=== PATIENT | female | born 2000 | race African-American/Black ===

== ENCOUNTER 2022-11-09 19:19 | Emergency (ER) | payer BC, OTHER ==
[~2022-11-09] VITALS: Ht 167 cm; Wt 60.7 kg
--- NOTE | 2022-11-09 19:53 | ED Respiratory ---
General Chief Complaint: Respiratory Problems Stated Complaint: shortness of breath Nursing Triage Note: PATIENT STATES SHORTNESS OF BREATH, DENIES COUGH. Source: patient History of Present Illness Date Seen by Provider: Nov 09, 2022 Time Seen by Provider: 19:40 Initial Comments PT ARRIVES VIA POV FROM HOME C/O SHORTNESS OF BREATH SINCE YESTERDAY NO COUGH OR NASAL CONGESTION/DRAINAG NO FEVER NO CHEST PAIN NO SWELLING IN LEGS/FEET OR PAIN IN CALVES NO RECENT TRAVEL NO HISTORY OF SIMILAR PT IS [employer] STUD[employer], ROOM MATE IS NOT ILL. NO KNOWN SICK CONTACTS PT IS NOT IN ANY SPORTS PT HAS HAD COVID VACCINE X 2 LMP--BEGAN 4 DAYS AGO, NORMAL. NO CONTROL [employer] Allergies and Home Medications Allergies Coded Allergies: No Known Drug Allergies (Unverified , 11/09/22) Review of Systems Review of Systems Constitutional: no symptoms reported EENTM: no symptoms reported Respiratory: see HPI; No cough; short of breath Cardiovascular: no symptoms reported Gastrointestinal: no symptoms reported Genitourinary: no symptoms reported LMP: Nov 05, 2022 Musculoskeletal: no symptoms reported Skin: no symptoms reported Psychiatric/Neurological: No Symptoms Reported Hematologic/Lymphatic: No Symptoms Reported Immunological/Allergic: no symptoms reported Past Ceazbgo-Kfkrqu-Cndgmn Hx Patient Social History Tobacco Use?: No Use of E-Cig and/or Vaping dev: No Substance use?: Yes Substance type: Marijuana Additional substance use comme: CLAIMS NONE X 4 MONTHS ON 11/09/22 Alcohol Use?: No Seasonal Allergies Seasonal Allergies: No Past Medical History Surgeries: No Respiratory: No Cardiac: No Neurological: No : No Last Menstrual Period: Nov 05, 2022 Reproductive Disorders: No Genitourinary: No Gastrointestinal: No Musculoskeletal: No Endocrine: No HEENT: No Cancer: No Psychosocial: No Integumentary: No Blood Disorders: No Physical Exam Vital Signs - First Documented 11/09/22 19:36 Temp 37.2 Pulse 88 Resp 20 Pulse Ox 95 O2 Delivery Room Air Capillary Refill : Less Than 3 Seconds Height: '" Weight: lbs. oz. kg; 21.00 BMI Method: General Appearance: WD/WN, no apparent distress, other (DOES NOT APPEAR ILL OR TO BE IN ANY DISCOMFORT OR DISTRESS) HEENT: PERRL/EOMI, normal ENT inspection, TMs normal, pharynx normal Neck: normal inspection Respiratory: normal breath sounds, no respiratory distress, no accessory muscle use Cardiovascular: normal peripheral pulses, regular rate, rhythm, no edema, no JVD, no murmur Gastrointestinal: non tender, soft Extremities: normal inspection, normal capillary refill Neurologic/Psychiatric: manager pediatric II-XII nml as tested, no motor/sensory deficits, alert, normal mood/affect, oriented x 3 Skin: normal color (PT IS BLACK), warm/dry Progress/Results/Core Measures Suspected Sepsis SIRS Temperature: Pulse: 88 Respiratory Rate: 20 Blood Pressure / Mean: Results/Orders Lab Results Laboratory Tests Test 11/09/22 19:45 Range/Units Influenza Type A (RT-PCR) Not Detected Not Detecte Influenza Type B (RT-PCR) Not Detected Not Detecte SARS-CoV-2 RNA (RT-PCR) Not Detected Not Detecte My Orders Orders - NUNO NICE DO Covid 19 Inhouse Test (11/09/22 19:42) Influenza A And B By Pcr (11/09/22 19:42) Isolation Central Supply Req (11/09/22 19:42) Chest 1 View, Ap/Pa Only (11/09/22 19:47) Vital Signs/I&O 11/09/22 19:36 Temp 37.2 Pulse 88 Resp 20 B/P (MAP) Pulse Ox 95 O2 Delivery Room Air Capillary Refill : Less Than 3 Seconds Progress Note : Progress Note PPE WORN COVID AND FLU TESTING DONE VITALS NORMAL, O2 SAT 100% AND PT IS NOT DYSPNEIC, WITH CLEAR LUNG SOUNDS MARKED DELAY ON OBTAINING CXR, AND THEN MARKED DELAY IN OBTAINING RADIOLOGIST REPORT DISCUSSED TEST RESULTS, ANTICIPATED COURSE, SYMPTOMATIC TREATMENT, NEED FOR FOLLOW UP AND RETURN PRECAUTIONS. Diagnostic Imaging Comments CXR--PER RADIOLOGIST REPORT AT 213 Findings: No focal airspace disease in the visualized lungs. No pleural effusion or pneumothorax. Normal cardiomediastinal silhouette. Impression: 1. No acute cardiopulmonary process by portable radiography. Reviewed: Reviewed by Me Departure Impression Primary Impression: SUBJECTIVE DYSPNEA Disposition: HOME, SELF-CARE Condition: Stable Departure-Patient Inst. Decision time for Depature: 21:33 Referrals: NO,LOCAL PHYSICIAN (PCP) Primary Care Physician KOBY PAYAN MD Patient Instructions: Shortness of Breath, Adult ED Add. Discharge Instructions: HOME, REST FOLLOW UP WITH [facility] [facility] ON FRIDAY FOR RECHECK All discharge instructions reviewed with patient and/or family. Voiced understanding. NUNO NICE DO Nov 09, 2022 19:53
--- NOTE | 2022-11-09 21:32 | Diagnostic Imaging Report ---
CHEST 1 VIEW, AP/PA ONLY Indication: Dyspnea Comparison: None available. Findings: No focal airspace disease in the visualized lungs. No pleural effusion or pneumothorax. Normal cardiomediastinal silhouette. Impression: 1. No acute cardiopulmonary process by portable radiography. Dictated by: Dictated on workstation # [id number]
[2022-11-09 21:44] VITALS: BP 98/62
== END 2022-11-09 21:44 | disposition home or self-care (01) ==
LOC: ER 19:32
DX: R06.02 Shortness of breath (principal); Z20.822 Contact with and (suspected) exposure to COVID-19
CPT/HCPCS: 71045; 87636

== ENCOUNTER 2022-11-21 16:45 | Emergency (ER) | payer BC ==
[~2022-11-21] VITALS: Ht 171 cm; Wt 61.0 kg
--- NOTE | 2022-11-21 17:47 | ED General ---
General Chief Complaint: Respiratory Problems Stated Complaint: RESPITORY Nursing Triage Note: PT STATES LOW ENERGY AND ABOUT PASSED OUT TODAY, WAS SEEN HERE ABOUT 2 WKS AGO FOR HARD TO BREATH Source of Information: Patient Exam Limitations: No Limitations (SAUL PINEDA MD) History of Present Illness Date Seen by Provider: Nov 21, 2022 Time Seen by Provider: 17:33 Initial Comments Patient is a 21-year-old female who presents to the emergency room with a chief complaint of feeling "fatigued", no energy, intermittently shortness of breath. She was at work today and felt like her blood sugar might have dropped because she felt like she was going to pass out. Patient denies any recent fevers, chills, runny nose, cough or congestion. No headache. No nausea, vomiting or diarrhea. No urinary complaints. Last menstrual cycle was a week ago. She states she is not sexually active. Is not on control came off of it in March 2022. Takes no daily medication. No prior surgeries. Currently feels asymptomatic. Timing/Duration: 4-6 Hours Severity: Mild Associated Systoms: Shortness of Air, Weakness (SAUL PINEDA MD) Allergies and Home Medications Allergies Coded Allergies: No Known Drug Allergies (Unverified , 11/09/22) Patient Home Medication List Home Medication List Reviewed: Yes (SAUL PINEDA MD) Review of Systems Review of Systems Constitutional: see HPI EENTM: no symptoms reported Respiratory: short of breath (Intermittent) Cardiovascular: no symptoms reported Gastrointestinal: no symptoms reported Genitourinary: no symptoms reported Musculoskeletal: no symptoms reported Skin: no symptoms reported Psychiatric/Neurological: No Symptoms Reported (SAUL PINEDA MD) Past Zqlpnou-Acopvf-Wuldxf Hx Patient Social History Tobacco Use?: No Substance use?: No (SAUL PINEDA MD) Immunizations Up To Date Second COVID19 Vaccination Alan: YES (SAUL PINEDA MD) Seasonal Allergies Seasonal Allergies: No (SAUL PINEDA MD) Past Medical History Surgery/Hospitalization HX: DENIES MED HX Surgeries: No Respiratory: No Cardiac: No Neurological: No Last Menstrual Period: Nov 07, 2022 Reproductive Disorders: No Genitourinary: No Gastrointestinal: No Musculoskeletal: No Endocrine: No HEENT: No Cancer: No Psychosocial: No Integumentary: No Blood Disorders: No (SAUL PINEDA MD) Physical Exam Vital Signs Vital Signs - First Documented 11/21/22 16:48 Temp 36.6 Pulse 101 Resp 18 B/P (MAP) 108/49 (68) Pulse Ox 99 O2 Delivery Room Air (FRANCISCA NINA) Vital Signs Capillary Refill : Less Than 3 Seconds (SAUL PINEDA MD) Height, Weight, BMI Height: '" Weight: lbs. oz. kg; 20.00 BMI Method: General Appearance: No Apparent Distress, WD/WN, Thin Eyes: Bilateral Eye Normal Inspection, Bilateral Eye PERRL, Bilateral Eye EOMI HEENT: PERRL/EOMI, TMs Normal, Normal ENT Inspection, Pharynx Normal, Moist Mucous Membranes Neck: Normal Inspection, Supple Respiratory: Lungs Clear, Normal Breath Sounds, No Accessory Muscle Use, No Respiratory Distress Cardiovascular: Regular Rate, Rhythm, Normal Peripheral Pulses Gastrointestinal: Non Tender, Soft Extremity: Normal Capillary Refill, Normal Inspection, Normal Range of Motion, Non Tender, No Calf Tenderness Neurologic/Psychiatric: Alert, Oriented x3, No Motor/Sensory Deficits, Normal Mood/Affect, marketing services rep II-XII Norm as Tested Skin: Normal Color, Warm/Dry (SAUL PINEDA MD) Progress/Results/Core Measures Suspected Sepsis SIRS Temperature: Pulse: 101 Respiratory Rate: 18 Blood Pressure 108 /49 Mean: 68 (SAUL PINEDA MD) Results/Orders Lab Results Laboratory Tests Test 11/21/22 17:53 11/21/22 18:04 11/21/22 18:19 Range/Units Glucometer 64 L 70-110 MG/DL White Blood Count 7.5 4.3-11.0 10^3/uL Red Blood Count 4.29 3.80-5.11 10^6/uL Hemoglobin 11.5 11.5-16.0 g/dL Hematocrit 36 35-52 % Mean Corpuscular Volume 85 80-99 fL Mean Corpuscular Hemoglobin 27 25-34 pg Mean Corpuscular Hemoglobin Concent 32 32-36 g/dL Red Cell Distribution Width 14.1 10.0-14.5 % Platelet Count 238 130-400 10^3/uL Mean Platelet Volume 12.6 H 9.0-12.2 fL Immature Granulocyte % (Auto) 0 % Neutrophils (%) (Auto) 58 42-75 % Lymphocytes (%) (Auto) 33 12-44 % Monocytes (%) (Auto) 8 0-12 % Eosinophils (%) (Auto) 1 0-10 % Basophils (%) (Auto) 0 0-10 % Neutrophils # (Auto) 4.4 1.8-7.8 10^3/uL Lymphocytes # (Auto) 2.5 1.0-4.0 10^3/uL Monocytes # (Auto) 0.6 0.0-1.0 10^3/uL Eosinophils # (Auto) 0.1 0.0-0.3 10^3/uL Basophils # (Auto) 0.0 0.0-0.1 10^3/uL Immature Granulocyte # (Auto) 0.0 0.0-0.1 10^3/uL Sodium Level 139 135-145 MMOL/L Potassium Level 4.3 3.6-5.0 MMOL/L Chloride Level 107 98-107 MMOL/L Carbon Dioxide Level 22 21-32 MMOL/L Anion Gap 10 5-14 MMOL/L Blood Urea Nitrogen 14 7-18 MG/DL Creatinine 0.85 0.60-1.30 MG/DL Estimat Glomerular Filtration Rate 101 BUN/Creatinine Ratio 16 Glucose Level 66 L 70-105 MG/DL Calcium Level 9.3 8.5-10.1 MG/DL Corrected Calcium 9.1 8.5-10.1 MG/DL Total Bilirubin 0.2 0.1-1.0 MG/DL Aspartate Amino Transf (AST/SGOT) 18 5-34 U/L Alanine Aminotransferase (ALT/SGPT) 12 0-55 U/L Alkaline Phosphatase 54 40-136 U/L Total Protein 7.4 6.4-8.2 GM/DL Albumin 4.2 3.2-4.5 GM/DL Monoscreen NEGATIVE NEGATIVE Urine Color YELLOW Urine Clarity CLEAR Urine pH 7.0 5-9 Urine Specific Tracy 1.010 L 1.016-1.022 Urine Protein NEGATIVE NEGATIVE Urine Glucose (UA) NEGATIVE NEGATIVE Urine Ketones NEGATIVE NEGATIVE Urine Nitrite NEGATIVE NEGATIVE Urine Bilirubin NEGATIVE NEGATIVE Urine Urobilinogen 0.2 < = 1.0 MG/DL Urine Leukocyte Esterase 1+ H NEGATIVE Urine RBC (Auto) NEGATIVE NEGATIVE Urine RBC NONE /HPF Urine WBC 0-2 /HPF Urine Squamous Epithelial Cells RARE /HPF Urine Crystals NONE /LPF Urine Bacteria TRACE /HPF Urine Casts NONE /LPF Urine Mucus NEGATIVE /LPF Urine Culture Indicated NO Urine Test NEGATIVE NEGATIVE (FRANCISCA NINA) My Orders Orders - FRANCISCA NINA Cbc With Automated Diff (11/21/22 17:57) Comprehensive Metabolic Panel (11/21/22 17:57) Chest 1 View, Ap/Pa Only (11/21/22 17:57) Ekg Tracing (11/21/22 17:57) Monotest (11/21/22 17:57) Ua Culture If Indicated (11/21/22 17:57) Hcg,Qualitative Urine (11/21/22 17:57) (FRANCISCA NINA) Vital Signs/I&O 11/21/22 16:48 Temp 36.6 Pulse 101 Resp 18 B/P (MAP) 108/49 (68) Pulse Ox 99 O2 Delivery Room Air (FRANCISCA NINA) Vital Signs/I&O Capillary Refill : Less Than 3 Seconds (SAUL PINEDA MD) Blood Pressure Mean: 68 Departure Communication (PCP) Took over care for Dr. Pineda at 6 PM. Patient discussed with me that she was having heart palpitation, chest pain and shortness of breath over the past 2 weeks. She states that shortness of breath was worse 2 weeks ago and improving some. She was concern for the heart palpitations today with a near syncopal event. She states she felt fatigued and weak during that time. Due to current complaint EKG, CBC, CMP and urinalysis was ordered. Did perform an Accu-Chek. She is not diabetic. Accu-Chek blood sugar 67. Provided a snack here at bedside. CBC CMP grossly unremarkable. Normal hemoglobin, electrolytes, kidney function. Urinalysis without strong evidence of infection. EKG showed normal sinus rhythm without evidence of arrhythmia, WPW, Brugada syndrome, arrhythmia. Chest x-ray negative for pneumonia, pneumothorax. She is not tachycardic or hypoxic suggesting PE. No leg pain. Perc score is 0. Low Wells score. No family history of sudden cardiac . Thurston negative. No recent URI symptoms. Patient exam otherwise benign. Discussed all results. Discussed multivitamins. Discussed healthy diet. Recommend follow-up with PCP in 2 to 3 days for reevaluation. (FRANCISCA NINA) Impression Primary Impression: Dyspnea Qualified Codes: R06.00 - Dyspnea, unspecified Additional Impressions: Fatigue Qualified Codes: R53.83 - Other fatigue Hypoglycemia Disposition: 01 HOME, SELF-CARE Condition: Stable Departure-Patient Inst. Decision time for Depature: 17:48 (SAUL PINEDA MD) Referrals: NO,LOCAL PHYSICIAN (PCP) Primary Care Physician Patient Instructions: Fatigue ED Add. Discharge Instructions: Start taking an pezb-zsj-daiwqpy multivitamin daily. Drink plenty of fluids to stay well-hydrated. Make sure you are eating well throughout the day and getting adequate rest at night. If you have any new, concerning or emergent complaints please return to the emergency room for reevaluation. SAUL PINEDA MD Nov 21, 2022 17:47 FRANCISCA NINA Nov 21, 2022 18:54
[2022-11-21 18:14] LABS: BASOPHILS % (AUTO) 0 % (0-10); EOSINOPHILS # (AUTO) 0.1 10^3/uL (0.0-0.3); EOSINOPHILS % (AUTO) 1 % (0-10); HEMATOCRIT 36 % (35-52); HEMOGLOBIN 11.5 g/dL (11.5-16.0); LYMPHOCYTES # (AUTO) 2.5 10^3/uL (1.0-4.0); LYMPHOCYTES % (AUTO) 33 % (12-44); MEAN CORPUSCULAR HEMOGLOBIN 27 pg (25-34); MEAN CORPUSCULAR HGB CONC 32 g/dL (32-36); MEAN CORPUSCULAR VOLUME 85 fL (80-99); MEAN PLATELET VOLUME 12.6 fL (9.0-12.2); MONOCYTES # (AUTO) 0.6 10^3/uL (0.0-1.0); MONOCYTES % (AUTO) 8 % (0-12); NEUTROPHILS # (AUTO) 4.4 10^3/uL (1.8-7.8); NEUTROPHILS % (AUTO) 58 % (42-75); PLATELET COUNT 238 10^3/uL (130-400); WHITE BLOOD COUNT 7.5 10^3/uL (4.3-11.0)
[2022-11-21 18:19] LABS: ALBUMIN 4.2 GM/DL (3.2-4.5); POTASSIUM 4.3 MMOL/L (3.6-5.0)
[2022-11-21 18:21] LABS: CALCIUM 9.3 MG/DL (8.5-10.1)
[2022-11-21 18:22] LABS: TOTAL PROTEIN 7.4 GM/DL (6.4-8.2)
[2022-11-21 18:24] LABS: BILIRUBIN,TOTAL 0.2 MG/DL (0.1-1.0)
[2022-11-21 18:24] LABS: BILIRUBIN,URINE NEGATIVE (NEGATIVE); CLARITY,URINE CLEAR; COLOR,URINE YELLOW; GLUCOSE, URINE (UA) NEGATIVE (NEGATIVE); KETONES,URINE NEGATIVE (NEGATIVE); LEUKOCYTE ESTERASE ,URINE 1+ (NEGATIVE); NITRITE,URINE NEGATIVE (NEGATIVE); PROTEIN,URINE NEGATIVE (NEGATIVE)
[2022-11-21 18:25] LABS: CREATININE SERUM 0.85 MG/DL (0.60-1.30)
[2022-11-21 18:31] LABS: BACTERIA,URINE TRACE /HPF; SQUAMOUS EPITHELIAL CELL,UR RARE /HPF; WBC,URINE 0-2 /HPF
--- NOTE | 2022-11-21 18:49 | Diagnostic Imaging Report ---
PATIENT HISTORY: Shortness of breath. TECHNIQUE: Single frontal view of the chest. COMPARISON: 11/09/2022. FINDINGS: The lung volumes are normal. No focal consolidation is seen. No large pleural effusion or pneumothorax is seen. The cardiomediastinal silhouette is normal in size and contour. No acute osseous abnormality is seen. IMPRESSION: No acute pulmonary abnormality seen. Dictated by: Dictated on workstation # [id number]
[2022-11-21 19:19] VITALS: BP 112/70
== END 2022-11-21 19:20 | disposition home or self-care (01) ==
LOC: EDUNIT# 16:45 → ER 16:48
DX: R06.02 Shortness of breath (principal); E16.2 Hypoglycemia, unspecified; R53.83 Other fatigue; R55 Syncope and collapse; R00.2 Palpitations
CPT/HCPCS: 36415; 71045; 80053; 81000; 82947; 84703; 85025; 86308; 93005